=== PATIENT | female | born 1940 | race Caucasian/White ===

== ENCOUNTER → 2021-06-05 11:36 | Outpatient (CLI) | payer MEDICARE, OTHER, SELFPAY ==
[2021-06-05 20:13] LABS: Alanine Aminotransferase 22 IU/L (<35); Albumin Globulin Ratio 1.5 (1.0-2.8); Alkaline Phosphatase 50 U/L (38-126); Aspartate Aminotransferase 28 IU/L (14-36); BUN Creatinine Ratio 27.7 (6-22); Bilirubin Total 0.5 mg/dL (0.2-1.3); Blood Urea Nitrogen 28 mg/dL (7-17); Calcium 9.3 mg/dL (8.4-10.2); Carbon Dioxide 31 mmol/L (22-32); Chloride 103 mmol/L (98-107); Estimated Glomerular Filt Rate 52.7 mL/min (>60); Globulin 2.7 g/dL (1.7-4.1); Glucose 97 mg/dL (80-110); HEMOLYSIS < 15 (0-50); Potassium 4.1 mmol/L (3.4-5.1); Sodium 136 mmol/L (137-145); Total Protein 6.7 g/dL (6.3-8.2)
[2021-06-05 20:38] LABS: Thyroid Stimulating Hormone 17.7 uIU/mL (0.47-4.68)
== END ==
PROVIDERS: PCP Family Medicine; Referring Provider Family Medicine; Visit Provider Family Medicine
DX: E03.9 Hypothyroidism, unspecified (principal); R53.83 Other fatigue
CPT/HCPCS: 80053; 84443

== ENCOUNTER → 2021-09-06 13:36 | Outpatient (CLI) | payer MEDICARE, SELFPAY ==
[2021-09-06 19:08] LABS: Thyroid Stimulating Hormone 0.959 uIU/mL (0.47-4.68)
== END ==
PROVIDERS: PCP Family Medicine; Referring Provider Family Medicine; Visit Provider Family Medicine
DX: E03.9 Hypothyroidism, unspecified (principal)
CPT/HCPCS: 84443

== ENCOUNTER → 2022-04-13 12:35 | Outpatient (CLI) | payer MEDICARE, SELFPAY ==
--- NOTE | 2022-04-13 | DI.MG.S_ITS ---
UNILATERAL LEFT DIGITAL DIAGNOSTIC MAMMOGRAM 3D/2D WITH ADDITIONAL VIEWS: 04/13/2022 CLINICAL: Additional evaluation requested from prior study. Comparison is made to exam dated: 02/20/2022 mammogram - outside location. There are scattered areas of fibroglandular density in the left breast (category b / 25%-50% glandular tissue). There is an irregular equal density focal asymmetry with an indistinct margin in the left breast at 8 o'clock posterior depth. This is seen in additional views. No other significant masses or calcifications are seen in the breast. IMPRESSION: INCOMPLETE: NEEDS ADDITIONAL IMAGING EVALUATION The irregular equal density focal asymmetry in the left breast is indeterminate. An ultrasound is recommended. Based on the Tyrer Cuzick model (a risk assessment model) the patient's lifetime risk is 0.9% and her 10 year risk is 0.0%. According to the ACR, ACS, and NCCN guidelines, an annual breast MRI exam along with mammogram is recommended if the patient's lifetime risk is 20% or greater. This exam was interpreted at Station ID: [id number]. NOTE: For mammograms, a report in lay terms will be sent to the patient. Approximately 15% of breast malignancies will not be visualized mammographically. In the management of a palpable breast mass, a negative mammogram must not discourage biopsy of a clinically suspicious lesion. Electronically Signed By: John parker/regine:04/13/2022 15:41:34 ACR BI-RADS Category 0: Incomplete 3340F
--- NOTE | 2022-04-13 12:38 | DI.US.S_ITS ---
LIMITED ULTRASOUND OF LEFT BREAST AND AXILLA: 04/13/2022 CLINICAL: Patient returns today to evaluate a focal asymmetry in the left breast. Comparison is made to exams dated: 04/13/2022 mammogram - [facility] and 02/20/2022 mammogram - outside location. Color flow ultrasound of the left breast axilla was performed. Sherman scale images of the real-time examination were reviewed. There is a 0.5 cm x 0.5 cm x 0.5 cm irregular mass with an indistinct margin in the left breast at 8 o'clock posterior depth 9 cm from the nipple. This irregular mass is hyperechoic with posterior acoustic shadowing. This correlates with mammography findings. Color flow imaging demonstrates that there is vascularity present. No significant abnormalities were seen sonographically in the left axilla. IMPRESSION: SUSPICIOUS OF MALIGNANCY The 0.5 cm x 0.5 cm x 0.5 cm irregular mass in the left breast is suspicious of malignancy. An ultrasound guided biopsy is recommended. The findings and recommendations were discussed with the patient by the onsite radiologist, Dr. Golden, at the time of the exam. No significant abnormalities were seen sonographically in the left axilla. This exam was interpreted at Station ID: [id number]. Electronically Signed By: John Knapp M.D. ar/:04/13/2022 15:44:17 letter sent: Biopsy Required Ultrasound BI-RADS: 4 Suspicious for malignancy
== END ==
PROVIDERS: PCP Family Medicine; Referring Provider Family Medicine; Visit Provider Family Medicine
DX: R92.8 Other abnormal and inconclusive findings on diagnostic imaging of breast (principal); N63.24 Unspecified lump in the left breast, lower inner quadrant
CPT/HCPCS: 76642; 77065; G0279

== ENCOUNTER → 2022-05-08 | Outpatient (CLI) | payer MEDICARE, SELFPAY ==
--- NOTE | 2022-05-08 | PATH_ITS ---
[facility] Accession Number: [id number] . 01 Material submitted: . breast - LEFT BREAST MASS 8:00 9CM FN . 01 Diagnosis: A. Left Breast Mass, 8 o'clock, 9 cm from the Nipple, Biopsy: Invasive (ductal) carcinoma, with focal lobular growth pattern, grade 1 of 3 (Christi combined histologic grade, total score 5/9) with the following features: 1. Nuclear pleomorphism: Intermediate. (2/3) 2. Mitotic rate: Low. (1/3) 3. Tubular differentiation: Moderate degree. (2/3) 4. Size of invasive carcinoma: present on multiple cores, single largest dimension of 3 mm in this sample. 5. Ductal carcinoma in situ: Absent. 6. Calcifications: Absent. 7. Lymphatic invasion: Absent. 8. Prognostic markers: - Estrogen receptor: Positive (>99%, Strong). - Progesterone receptor: Positive (>85%, Moderate to Strong). - HER2: Negative for protein overexpression by immunohistochemistry (1+). [facility] 05/11/2022 1636 Local . 01 Electronically signed: Fabby Ansari MD, Pathologist NPI- [id number] . 01 Gross description: . Received one formalin-filled container, labeled with the patient's name and LT breast 8 o'clock 9 cm FN. The sample is received with a plastic filter in container, sample loose in container and consists of multiple light yellow-simpson pieces of soft tissue which range in size from less than 0.1 cm to 1.0 x 0.2 x 0.2 cm. The specimen is filtered. All fragments are totally submitted in one cassette. Collection date and time per requisition: 05/08/22 at 10:08. Total fixation time: Approximately 17 hours. ([id number]) /FRR 05/09/2022 0314 Local . 01 Microscopic: . Predictive marker immunohistochemical studies are performed on block A1 with the invasive carcinoma showing the following results: . Estrogen receptor (SP1): Positive (more than 99% tumor cells staining, staining intensity: strong). Progesterone receptor (1E2): Positive (more than 85% tumor cells staining, staining intensity: moderate to strong). Her2 (4B5): Negative for protein overexpression by immunohistochemistry (1+). . Internal controls for ER and IN are positive. Cold ischemic time is <5 minutes. The scoring criteria for breast biomarkers by immunohistochemistry is based on the ASCO/CAP guidelines (Yessi AC et al, J Clin Oncol: 2017Dec 10;36(20):3634-0978 and Bright NICK et al, Arch Pathol Lab Med: 2009;134(6):907-22). Deparaffinized sections of formalin fixed tissue (along with appropriate positive controls) are incubated with the above antibody(s). Using the automated Shelbina stainer, tissue is incubated with the designated antibody which is then localized by a non-biotin, dual polymer detection system. The external controls are reviewed for appropriate reactivity and found to be adequate. Results on the target cell population are indicated above. These tests have not been validated on decalcified tissue. This test was developed and its performance characteristics determined by [facility]. It has not been cleared or approved by the U.S. Food and Drug Administration. The FDA has determined that such clearance or approval is not necessary. This test is used for clinical purposes. It should not be regarded as investigational or for research. . 01 Pathologist provided ICD-10: C50.812 . 01 CPT . 462750, 580824, 682872, 783971 Specimen Comment: A courtesy copy of this report has been sent to [phone] Performed at: 01 [facility] Cytology [address] [place] [address], [place], [place] [id number] MD Satish Lorenzana MD Phone: [phone]
--- NOTE | 2022-05-08 | DI.MG.S_ITS ---
UNILATERAL LEFT DIGITAL DIAGNOSTIC MAMMOGRAM 3D/2D: 05/08/2022 CLINICAL: Post clip. Comparison is made to exams dated: 04/13/2022 ultrasound, 04/13/2022 mammogram - [facility], and 02/20/2022 mammogram - outside location. There are scattered areas of fibroglandular density in the left breast (category b / 25%-50% glandular tissue). There is a biopsy clip in the region of previously seen irregular equal density focal asymmetry with an indistinct margin in the left breast at 8 o'clock posterior depth. This is seen in additional views. IMPRESSION: POST PROCEDURE MAMMOGRAM FOR MARKER PLACEMENT Biopsy clip in region of previously seen abnormality. This exam was interpreted at Station ID: [id number]. NOTE: For mammograms, a report in lay terms will be sent to the patient. Approximately 15% of breast malignancies will not be visualized mammographically. In the management of a palpable breast mass, a negative mammogram must not discourage biopsy of a clinically suspicious lesion. Electronically Signed By: Christina eller/:05/08/2022 10:00:39 ACR BI-RADS Category Post-procedure mammogram for marker placement
--- NOTE | 2022-05-08 09:00 | DI.US.S_ITS ---
ULTRASOUND GUIDED BIOPSY LEFT BREAST: 05/08/2022 CLINICAL: Left breast mass. PATIENT CONSENT: Risks (minor bleeding, infection, vasovagal reaction and repeat procedure), benefits and alternatives were explained to the patient and written informed consent was obtained. Correlation is made to exams dated: 05/08/2022 mammogram, 04/13/2022 ultrasound, 04/13/2022 mammogram - [facility], and 02/20/2022 mammogram - outside [facility]. An ultrasound guided biopsy using real-time ultrasound was performed for the irregular shaped mass located in the left breast at 3 o'clock posterior depth. The skin was prepped in the usual manner. The abnormality was approached from the caudocranial aspect. A biopsy needle was placed adjacent to the abnormality under ultrasound guidance. Once the needle was documented to be in the correct location, a specimen was obtained using an automated biopsy gun. The specimen was sent to the laboratory for pathological analysis. IMPRESSION: ULTRASOUND GUIDED BIOPSY MALIGNANT Ultrasound guided biopsy of the mass in the left breast posterior depth was performed. Pathology indicates malignant invasive ductal carcinoma (ID) with lobular features. Pathology results are concordant with imaging findings. Oncologic/surgical consultation recommended. This exam was interpreted at Station ID: [id number]. Iveth Cleveland M.D. [facility],/:05/16/2022 16:25:05
== END ==
PROVIDERS: PCP Family Medicine; Referring Provider Family Medicine; Visit Provider Family Medicine
DX: Z13.820 Encounter for screening for osteoporosis (principal); C50.312 Malignant neoplasm of lower-inner quadrant of left female breast; Z78.0 Asymptomatic menopausal state; M81.0 Age-related osteoporosis without current pathological fracture; Z90.710 Acquired absence of both cervix and uterus; Z17.0 Estrogen receptor positive status [ER+]
CPT/HCPCS: 19083; 77065; 77080

== ENCOUNTER → 2022-05-29 10:58 | Outpatient (CLI) | payer MEDICARE, SELFPAY ==
[2022-05-29 19:18] LABS: Add Manual Diff / Slide Review NO; Basophils Absolute Auto 200 /uL (0-100); Eosinophils Absolute Auto 200 /uL (0-450); Eosinophils Percent Auto 3.7 % (2-4); Hematocrit 42.4 % (36-46); Hemoglobin 14.3 g/dL (12.0-16.0); Lymphocytes Absolute Auto 1300 /uL (1100-4500); Lymphocytes Percent Auto 23.9 % (25-40); Mean Corpuscular HGB Conc 33.7 % (30-36); Mean Corpuscular Hemoglobin 30.3 PG (26-34); Mean Corpuscular Volume 89.9 fL (80-100); Monocytes Absolute Auto 400 /uL (0-900); Monocytes Percent Auto 7.3 % (3-14); Neutrophils Absolute Auto 3200 /uL (1500-7000); Neutrophils Percent Auto 62.1 % (50-75); Platelet Count 241 X10^3/uL (150-400); Red Blood Cell Count 4.72 X10^6/uL (4.0-5.2); Red Cell Distribution Width 13.7 % (11.6-14.8); White Blood Cell Count 5.2 X10^3/uL (4.5-11.0)
[2022-05-29 19:26] LABS: BUN Creatinine Ratio 32.3 (6-22); Blood Urea Nitrogen 30 mg/dL (7-17); Calcium 8.8 mg/dL (8.4-10.2); Carbon Dioxide 27 mmol/L (22-32); Chloride 98 mmol/L (98-107); Cholesterol 252 mg/dL (140-199); Estimated Glomerular Filt Rate > 60 mL/min (>60); Glucose 100 mg/dL (80-110); HDL Cholesterol 72 mg/dL (40-60); HEMOLYSIS < 15 (0-50); LDL Cholesterol Calculated 158 mg/dL (<100); Potassium 4.5 mmol/L (3.4-5.1); Sodium 134 mmol/L (137-145); Triglycerides 112 mg/dL (35-150)
[2022-05-29 20:10] LABS: Vitamin B12 607 pg/mL (239-931)
== END ==
PROVIDERS: PCP Family Medicine; Visit Provider Family Medicine
DX: F33.0 Major depressive disorder, recurrent, mild (principal); E03.9 Hypothyroidism, unspecified; R92.8 Other abnormal and inconclusive findings on diagnostic imaging of breast; I10 Essential (primary) hypertension; Z13.220 Encounter for screening for lipoid disorders; F32.9 Major depressive disorder, single episode, unspecified; F41.1 Generalized anxiety disorder; M54.6 Pain in thoracic spine
CPT/HCPCS: 80048; 80061; 82607; 84443; 85025

== ENCOUNTER → 2022-07-03 11:32 | Outpatient (CLI) | payer MEDICARE, SELFPAY ==
--- NOTE | 2022-07-03 | DI.MG.S_ITS ---
SPECIMEN: 07/03/2022 CLINICAL: Left breast specimen. Correlation is made to exams dated: 05/08/2022 [facility]. The biopsy marker clip is in the center of the surgical specimen. IMPRESSION: SPECIMEN The biopsy marker clip is in the surgical specimen. This exam was interpreted at Station ID: [id number]. Alisia Su M.D. fx/:07/03/2022 20:22:52
--- NOTE | 2022-07-03 | DI.NM.S_ITS ---
PROCEDURE: NM SENTINEL NODE INJECT ONLY RADIOPHARMACEUTICAL: 1.0 mCi Millipore filtered Tc-99m sulfur colloid. INDICATIONS: Left breast cancer COMPARISON: None. PROCEDURE: The area around the nipple was prepped and draped in a sterile fashion. Tc-99m sulfur colloid was injected intra-dermally around the outer edge of the areola in the left breast. No image was obtained. IMPRESSION: Administration of radiotracer into the left breast periareolar region for intra-operative sentinel lymph node localization. Dictated by: Yumi Douglass MD, PhD on 07/03/2022 at 13:09 Approved by: Yumi Douglass MD, PhD on 07/03/2022 at 13:10
== END ==
PROVIDERS: PCP Family Medicine; Referring Provider Surgery; Visit Provider Surgery
DX: C50.912 Malignant neoplasm of unspecified site of left female breast (principal)
CPT/HCPCS: 38792; 76098; A9541

== ENCOUNTER 2022-07-03 11:38 | Day surgery (SDC) | payer MEDICARE, SELFPAY ==
[2022-06-27 08:19] VITALS: BMI 25.8
--- NOTE | 2022-07-03 | DI.US.S_ITS ---
ULTRASOUND OF LEFT BREAST: 07/03/2022 CLINICAL: Sched for pre-op wire loc. Unable to see Celero biopsy marker. Procedure moved to mammo. Comparison is made to exams dated: 05/08/2022 mammogram, 05/08/2022 ultrasound biopsy, 04/13/2022 ultrasound, 04/13/2022 mammogram - [facility], and 02/20/2022 mammogram - outside location. Real-time ultrasound of the left breast was performed on the area of interest. The biopsy marker and mass in the left breast at 8:00 are not definitively identified on the ultrasound. IMPRESSION: The biopsy marker and the mass in the left breast at 8:00 are not definitively identified on the ultrasound. Wire localization was switched to mammographic guidence. This exam was interpreted at Station ID: [id number]. Electronically Signed By: Alisia Su M.D. fx/:07/03/2022 13:55:34 Ultrasound BI-RADS: n/a
--- NOTE | 2022-07-03 | DI.MG.S_ITS ---
WIRE LOCALIZATION LEFT BREAST: 07/03/2022 CLINICAL: Left breast cancer. PROCEDURE DESCRIPTION: Wire localization was performed under mammography guidence. Correlation is made to exams dated: 07/03/2022 ultrasound and 05/08/2022 mammogram - [facility]. A wire localization was performed targeting the marker clip located in the left breast in the lower inner quadrant posterior depth. The skin was prepped in the usual manner. A wire was inserted into the targeted area. There is a localizatino wire in the medial inferior left breast adjacent to the biopsy marker. IMPRESSION: WIRE LOCALIZATION Wire localization for the biopsy marker clip in the left breast was successful. This exam was interpreted at Station ID: [id number]. Alisia Su M.D. fx/:07/03/2022 20:23:18
--- NOTE | 2022-07-03 | PATH_ITS ---
[facility] Accession Number: [id number] No. of containers..04 Tissue . 01 Material submitted: . PART A: breast - LEFT BREAST TISSUE PART B: breast - LEFT BREAST TISSUE PART C: breast - LEFT BREAST TISSUE PART D: lymph node - LEFT AXILLARY SENTINEL NODES . 01 Diagnosis: A. Left Breast, Excision: Invasive ductal carcinoma; see Cancer Case Summary. . B. Left Breast, New Inferior Margin, Excision: Fibroadipose tissue. No breast parenchyma identified. No evidence of neoplasm. . C. Left Breast, New Medial Margin, Excision: Benign breast parenchyma. Negative for atypical hyperplasia, in situ or invasive carcinoma. . D. Left Axillary [place] Lymph Nodes, Excisional Biopsy: Four lymph nodes with no evidence of carcinoma. . . CANCER CASE SUMMARY - BREAST RESECTION Specimen - Procedure: Excision. - Specimen laterality: Left. Tumor - Tumor site: 8 o'clock. - Distance from nipple: 9 cm. - Histologic type: Invasive carcinoma of no special type (ductal). Histologic grade (Hopwood Histologic Score) - Tubular differentiation: Score 2. - Nuclear pleomorphism: Score 2. - Mitotic rate: Score 1. - Overall grade: Grade 1. Tumor size: 5 mm in greatest linear extent as measured on glass slide. Tumor focality: Single focus of invasive carcinoma. Ductal carcinoma in situ: Not identified. Lobular carcinoma in situ: Not identified. Lymphovascular invasion: Not identified. Dermal lymphovascular invasion: Not identified. Microcalcifications: Not identified. Treatment effect in the breast: No known presurgical therapy. Margin status for invasive carcinoma: All margins negative for invasive carcinoma. - Distance from invasive carcinoma to closest margin: 2 mm. - Closest margin to invasive carcinoma: Superior; See Comment. Regional lymph nodes - Regional lymph node status: Regional lymph nodes present. - All regional lymph nodes negative for tumor. - Total number of lymph nodes examined: 4. - Total number sentinel lymph nodes examined: 4. PTNM Classification (AJCC 8th Edition): - PT category: pT1a - PN category: pN0 - N suffix: (sn) Special studies: - Reported on biopsy specimen ([id number], 2021). - Estrogen receptor: Positive (99%, strong). - Progesterone receptor: Positive (85%, moderate to strong). - HER2: Negative for protein overexpression by immunohistochemistry (1+). V 07/06/2022 1544 Local . 01 Comment: Within the main specimen (Part A), carcinoma is present within 2mm of the superior margin. Additonal inferior (Part B) and medial (Part C) margins submitted are negative for carcioma. The additonal medial margin may have extened superiorly to include the closest superior margin, and clinical correlation is required to make this determination. . 01 Electronically signed: . Lester Do MD, PhD, Pathologist NPI- [id number] . 01 Gross description: . A. Received: In formalin, labeled with the patient's name, , and left breast tissue, long stitch lateral, short stitch superior. Specimen: Left lumpectomy. Weight: 36 grams. Measurement: 6.2 cm from anterior to posterior, 5.4 cm medial to lateral, and 1.7 cm superior to inferior. Skin Ellipse: Present, measuring 6.7 x 1.2 cm with a green-inked cutaneous surface. Wire: Present, penetrating superiorly and exiting inferiorly. Margins: The ellipse is marked with a short suture designating superior and along suture designating lateral, per the requisition. The specimen is also inked by the surgeon using margin marker with green anterior, blue inferior, per the requisition. However, the remaining inking scheme is cut off. The container states, see attached margin marker color sheet, however, no color sheet or sticker is identified with the requisition or the container. Following the sutures, the remaining specimen is received inked as follows: Red superior, black posterior, yellow medial, orange lateral. The ink is reinforced at the bench Sliced: From anterior to posterior into twelve 3 mm slices. Lesion: One. Description: A firm, ill-defined pale simpson lesion. Size: 0.8 x 0.4 x 0.4 cm. Slices Involved: Slice 3. Biopsy Site: No clip is identified; however, an area of hemorrhage is identified within slices 4-10, possibly consistent with biopsy site changes or wire tract. Distance to margins: 0.3 cm from the red margin, 0.3 cm from the blue margin, and greater than 0.5 cm from all remaining margins. Other: The remaining cut surfaces are yellow to white fibroadipose tissue with fibrous tissue occupying less than 10% of the cut surface. No additional lesions or biopsy sites are identified. Fixation: The specimen was removed on 07/03/2022. Time not provided. Cold ischemic time cannot be calculated. Total fixation time is approximately 32 hours. Cushion Installer sections are submitted as follows: A1-A2: Rep slice 1, skin perpendicular. A3: Rep slice 2, no lesion, to include red and blue margins. A4-A6: Entire composite slice 3, to include blue, yellow, orange, and red margins with lesion in A5. A7: Rep slice 4, to include red and blue margins. No lesion. A8: Rep slice 6, to include red, blue, and orange margins. A9: Rep slice 8, to include red, blue, and yellow margins. A10: Rep slice 10, to include red, blue and orange margins, and hemorrhagic area. A11-A12: Rep slice 12, black margin perpendicular. . B. Received: In formalin, labeled with the patient's name, , and left breast tissue new inferior margin, long stitch lateral, short stitch superior. Specimen: Oriented left lumpectomy. Weight: 10 grams. Measurement: 3.1 cm anterior to posterior, 5.9 cm medial to lateral, 1.3 cm superior to inferior. Skin Ellipse: Absent. Wire: Absent. Margins: Oriented with a short suture designating superior and a long suture designating lateral, per the requisition, and is received without ink. The specimen is inked as follows: Anterior yellow posterior black, medial blue, lateral green, superior orange, inferior red. Sliced: From medial to lateral into 10 slices. Lesion: No lesion or biopsy sites grossly identified. Other: The cut surfaces are yellow to white fibroadipose tissue with fibrous tissue occupying less than 10% of the cut surface. No lesions or biopsy sites are identified. Fixation: The specimen was removed on 07/03/2022. Time not provided. Cold ischemic time cannot be calculated. Total fixation time is approximately 32 hours. Specimen is submitted entirely as follows: B1-B2: Entire slice 1, blue margin perpendicular. B3: Entire slice 2. B4: Entire slice 3. B5: Entire slice 4. B6: Entire slice 5. B7: Entire slice 6. B8: Entire slice 7. B9: Entire slice 8. B10: Entire slice 9. B11-B12: Entire slice 10, green margin perpendicular. . C. Received in formalin labeled with the patient's name, and left breast tissue new medial no stitch, and consists of an unoriented yellow lobulated soft tissue fragment weighing 2 grams and measuring 2.5 x 2.0 x 1.1 cm. One surface is flat with visible white possible fibrous tissue, and the surface is inked black. The remaining surfaces are inked blue, and the specimen is sectioned into five slices to reveal an ill-defined, pale simpson, rubbery area within slices 2-4 measuring 0.7 x 0.6 x 0.5 cm that grossly approaches both the black and the blue margins. No additional lesions or biopsy sites are identified. Fixation: The specimen was removed on 07/03/2022. Time not provided. Cold ischemic time cannot be calculated. Total fixation time is approximately 32 hours. The specimen is submitted entirely as follows: C1: Slice 1 perpendicular. C2: Entire slice 2. C3: Entire slice 3. C4: Entire slice 4. C5: Entire slice 5 perpendicular. . D. Received in formalin labeled with the patient's name, and left axillary sentinel nodes, and consists of a single fragment of yellow lobulated adipose tissue measuring 3.2 x 1.3 x 1.2 cm. Palpation reveals four lymph node candidates. The first two lymph nodes are blue tinted and measuring 0.7 to 0.9 cm in greatest dimension while the second two are simpson and range from 0.2 to 0.9 cm in greatest dimension. The lymph node candidates are submitted as follows: D1: Single bisected blue lymph node candidate. D2: Single bisected blue lymph node candidate. D3: Single simpson bisected lymph node candidate. D4: Single intact simpson lymph node candidate. The specimen was removed on 07/03/2022. Time not provided. Cold ischemic time cannot be calculated. Total fixation time is approximately 32 hours. (AG:[id number]) /MRV 07/05/2022 0918 Local . 01 Pathologist provided ICD-10: C50.912 . 01 CPT . 716121, 913858, 057717, 397674 Specimen Comment: A courtesy copy of this report has been sent to [phone] Performed at: 01 [facility] Cytology [address] [place] [address] Suite [facility], [place], [place] [id number] MD Satish Lorenzana MD Phone: [phone]
[2022-07-03 12:05] VITALS: BP 186/86; PULSE 67; RESP 20; TEMP 36.8; O2SAT 96; BMI 25.8
--- NOTE | 2022-07-03 16:33 | P.OP.PRE_ITS ---
Pre-operative Note COVID-19 COVID-19 status: Not tested Interval Note History & Physical reviewed/Exam performed by Physician: Yes Changes to H&P: Yes H&P completed within 30 days and has changed as indicated here:: After discuss ion with the radiation oncologist Kelly chose to proceed with a left breast lumpectomy under wire localization with sentinel lymph node biopsy. ASA Class (for procedural sedation): II
[2022-07-03] MEDS: CEFAZOLIN 2 GM/100 ML PREMIX 100 ML IV (17:15)
[2022-07-03] MEDS: BUPIVACAINE 0.5% W/ EPI (PF) 30 ML VIAL INJ (17:37)
--- NOTE | 2022-07-03 17:37 | SUR.OPER ---
Supine on padded OR bed, head on pillow, arms secured on padded arm boards at <90 degrees abduction, legs uncrossed, safety belt at thigh.
[2022-07-03] MEDS: METHYLENE BLUE 50 MG/10 ML VIAL INJ (17:59)
--- NOTE | 2022-07-03 18:35 | P.OP_ITS ---
Operative Date/Time/Diagnoses Date of procedure: 07/03/22 Time of procedure: 18:35 Pre-op diagnosis: Left breast cancer Post-op diagnosis: same Procedure & Clinicians Procedure: Left breast wire localization lumpectomy with oncoplastic reconstruction and sentinel lymph node biopsy Same procedure as scheduled: Yes Surgeon: Germain Mckeon Operative Notes Procedure in detail: The patient was given preoperative antibiotic. The patient was brought to the operating room, placed on the table in the supine position, general anesthesia was induced with LMA. Arms were abducted on arm boards. 5 mL of 50% methylene blue were injected near the left areolar border. The left breast and axilla wer e prepped and draped in the usual fashion. A time-out was performed. Additional massage was performed to spread the methylene blue. We made a 10 cm triangular over the lower inner quadrant of the left breast where the wire was exiting the skin. We created flaps superior and inferior to the incision and then dissected down to the pectoral fascia keeping the wire directed towards the center of the specimen. A silk suture was placed at the lateral aspect of the mass and left long. A short superior stitch was placed. The paint kit was used to orient the specimen. The specimen was sent to Radiology for specimen mammogram. We injected lidocaine into the skin and made a transverse left axillary incision of roughly 5 cm. We dissected down through the subcutaneous adipose tissue until we could more easily palpate the palpable node. The lymphoscintigraphy probe was used to identify 2 blue sentinel nodes in the axilla which were removed together. Ex vivo counts were 10 fold higher than the background in the axilla. We then irrigated both wound cavities initially with sterile saline. Marcaine was injected into the muscle layer of the lumpectomy site. A few bleeders were cauterized. Once the wound cavities were hemostatic we injected some Marcaine into the dermis and closed both incisions in layers using multiple interrupted 3-0 Vicryl dermal sutures followed by a running 4-0 Monocryl subcuticular closure. Steri-Strips were applied followed by dry gauze and a breast binder. Post-operative Condition: stable Disposition: PACU
[2022-07-03 18:37] VITALS: BP 192/83; PULSE 72; RESP 12; TEMP 36.3; O2SAT 97
[2022-07-03 18:42] VITALS: BP 166/78; PULSE 71; RESP 12; TEMP 36.3; O2SAT 96
[2022-07-03 18:48] VITALS: BP 187/88; PULSE 71; RESP 13; TEMP 36.4; O2SAT 97
[2022-07-03 19:20] VITALS: BP 183/91; PULSE 70; RESP 18; TEMP 36.4; O2SAT 97
== END 2022-07-03 19:22 | disposition home or self-care (01) ==
PROVIDERS: PCP Family Medicine; Referring Provider Surgery; Visit Provider Surgery
PROC: (CPT 19125; principal; 2022-07-03 15:45)
DX: C50.311 Malignant neoplasm of lower-inner quadrant of right female breast (principal); Z17.0 Estrogen receptor positive status [ER+]
CPT/HCPCS: 19125; 38525; 19281; 38792; 76098; 76642; A9541; C1819; J0690; J2405; J2704; J3010; Q9968

== ENCOUNTER 2022-07-04 10:48 | Emergency (ER) | payer MEDICARE, SELFPAY ==
[2022-07-04] VITALS (9 sets, daily range): BP systolic 178–202; BP diastolic 76–84; PULSE 48–93; RESP 12–20; TEMP 36.9; O2SAT 96–98; BMI 25.8
--- NOTE | 2022-07-04 11:57 | PC.NURSE ---
recent surgery yesterday. Pt has voided since surgery, but states urinary output has become less and less. Currently has 100 cc in bladder. States she feels like she has to pee, but cant. Encouraging PO intake to try and get a urine sample.
--- NOTE | 2022-07-04 12:36 | ED.FEMALEGU ---
HPI - Female Genitourinary General Chief complaint: Urogenital-Female Stated complaint: Post T-1/trouble urinating/dizzy Time Seen by Provider: 07/04/22 11:12 Source: patient Mode of arrival: Ambulatory History of Present Illness HPI Narrative: 81-year-old female, former smoker, presents to the emergency department with inability to urinate since last evening. Patient had a neoplasm removal of left breast completed last evening by Dr. Mckeon, was discharged and got back to her local hotel room by 7:00 p.m.. Patient states that she urinated once when she got home but became more difficult and has not urinated this morning. Patient reports that she drank approximately 64 oz of water since she was discharged from the recovery room. Patient states that she was NPO since midnight before her procedure. Review of chart reveals patient did receive 900 mL of NS during the procedure. Bladder scan in the ED revealed 100 mL of urine. Related Data Home Medications Medication Instructions Recorded Confirmed levothyroxine 75 mcg capsule 75 mcg PO DAILY 03/14/22 07/03/22 lorazepam 1 mg tablet 1 mg PO DAILY PRN Anxiety 03/14/22 06/27/22 sertraline 25 mg tablet 100 mg PO DAILY 03/14/22 06/27/22 sertraline 50 mg tablet 100 mg PO DAILY 07/03/22 07/03/22 Previous Rx's Medication Instructions Recorded metoprolol succinate 25 mg 37.5 mg PO DAILY #135 tabs 04/18/22 tablet,extended release 24 hr Allergies Allergy/AdvReac Type Severity Reaction Status Date / Time No Known Drug Allergies Allergy Verified 07/04/22 11:20 Review of Systems Review of Systems Narrative: Narrative: See HPI. GENERAL: Denies chills, fatigue, fever, sweats. HEENT: Denies sinus pain, ear pain, sore throat, difficulty swallowing, dizziness. RESPIRATORY: Denies dyspnea, cough, wheezing, sputum. CARDIOVASCULAR: Denies chest pain, palpitations, edema. GASTROINTESTINAL: Denies nausea, vomiting, abdominal pain, diarrhea, constipation. : Denies dysuria, frequency, incontinence, hematuria, urinary retention, flank pain. MSK: Denies weakness, joint pain, or bony pain. SKIN: Denies rash, skin lesions, or pruritis. Mild left breast tenderness secondary to neoplasm removal last evening. Patient is currently in a post-surgical binding. NEUROLOGIC: Denies weakness, dizziness, headache, numbness, confusion. PSYCHIATRIC: No concerning psychosocial issues. Patient History Medical History Anemia Anxiety Cough Difficulty swallowing Headache Hypertension (05/19/02) Hyperthyroidism (05/19/02) Palpitations Sinus drainage Surgical History History of hysterectomy (07/1974) History of surgery (1990) Hx of rhinoplasty (~1970) Hx of tonsillectomy alcohol intake frequency: a few times a week Alcohol type: beer Substance Use Type: does not use Exam Narrative Exam Narrative: Exam Narrative: GENERAL: This is a well-nourished, well-developed patient, in no acute distress. HEAD: Atraumatic. Normocephalic. EYES: Pupils equal round and reactive. Extraocular motions intact. No scleral icterus, injection or drainage. CARDIOVASCULAR: Regular rate and rhythm without murmurs, peripheral pulses intact, cap refill <2 sec. RESPIRATORY: Breath sounds equal and clear bilaterally. No wheezes, rales, or rhonchi. No cough. No increased respiratory effort. No accessory muscle use. GASTROINTESTINAL: Abdomen soft, non-tender, nondistended without guarding or rebound. No suprapubic pain. MSK: Moves all extremities. Normal range of motion, no clubbing or edema. Neurovascularly intact. NEURO: A&O x 3. SKIN: Warm, dry, no rashes or lesions noted. Initial Vital Signs Initial Vital Signs: Vital Signs Temperature 98.4 F 07/04/22 11:20 Pulse Rate 58 L 07/04/22 11:20 Respiratory Rate 20 07/04/22 11:20 Blood Pressure 202/84 H 07/04/22 11:20 Pulse Oximetry 96 07/04/22 11:20 Oxygen Delivery Method 07/04/22 11:20 Reviewed Course Orders Ordered: ED Orders 07/04/22 12:25 UA Complete [Urinalysis and Microscopic] Stat Urine Culture Stat 07/04/22 12:45 Complete Blood Count AUTO DIFF Stat Comprehensive Metabolic Panel Stat Discontinued Medications Sodium Chloride (Normal Saline 0.9%) 500 mls @ 1,000 mls/hr IV BOLUS ONE Stop: 07/04/22 13:05 Last Infusion: 07/04/22 13:44 Dose: 0 mls/hr Documented By: Admin: 07/04/22 12:55 Dose: 1,000 mls/hr Documented By: OTTO Vital Signs Vital signs: Vital Signs - 8 hr 07/04/22 11:20 07/04/22 11:56 07/04/22 12:00 Temperature 98.4 F Pulse Rate 58 L 53 L Respiratory Rate 20 19 Blood Pressure 202/84 H 178/80 H Pulse Oximetry 96 98 Oxygen Delivery Method Room Air 07/04/22 12:00 07/04/22 12:53 07/04/22 13:00 Temperature Pulse Rate 48 L 93 H 56 L Respiratory Rate 12 Blood Pressure Pulse Oximetry 98 98 Oxygen Delivery Method Room Air 07/04/22 14:25 07/04/22 14:27 07/04/22 14:27 Temperature Pulse Rate 59 L 55 L Respiratory Rate Blood Pressure 194/76 H Pulse Oximetry 96 96 Oxygen Delivery Method 07/04/22 14:30 07/04/22 14:44 07/04/22 14:44 Temperature Pulse Rate 53 L 60 Respiratory Rate Blood Pressure 181/77 H Pulse Oximetry 96 97 Oxygen Delivery Method Room Air MDM - Female Genitourinary Differential Diagnosis Differential diagnosis: Likely urinary tract infection and other (Dehydration) Lab Data 07/04/22 12:45 07/04/22 12:45 Labs: Lab Results 07/04/22 07/04/22 07/04/22 Range/Units 12:25 12:45 12:45 WBC 8.8 (4.5-11.0) X10^3/uL RBC 4.62 (4.0-5.2) X10^6/uL Hgb 14.1 (12.0-16.0) g/dL Hct 41.1 (36-46) % MCV 88.9 (80-100) fL MCH 30.5 (26-34) PG MCHC 34.3 (30-36) % RDW 13.2 (11.6-14.8) % Plt Count 219 (150-400) X10^3/uL Neut % (Auto) 79.6 H (50-75) % Lymph % (Auto) 13.0 L (25-40) % [place] % (Auto) 5.7 (3-14) % Eos % (Auto) 1.1 L (2-4) % Baso % (Auto) 0.6 (0-2) % Neut # (Auto) 7000 (7221-6665) /uL Lymph # (Auto) 1200 (2403-7896) /uL [place] # (Auto) 500 (0-900) /uL Eos # (Auto) 100 (0-450) /uL Baso # (Auto) 0 (0-100) /uL Sodium 127 L (137-145) mmol/L Potassium 4.0 (3.4-5.1) mmol/L Chloride 92 L (98-107) mmol/L Carbon Dioxide 23 (22-32) mmol/L BUN 23 H (7-17) mg/dL Creatinine 0.93 (0.52-1.04) mg/dL Estimated GFR > 60 (>60) mL/min BUN/Creatinine Ratio 24.7 H (6-22) Glucose 111 H (80-110) mg/dL Calcium 8.4 (8.4-10.2) mg/dL Total Bilirubin 0.9 (0.2-1.3) mg/dL AST 39 H (14-36) IU/L ALT 24 (<35) IU/L Alkaline Phosphatase 63 (38-126) U/L Total Protein 7.5 (6.3-8.2) g/dL Albumin 4.5 (3.5-5.0) g/dL Globulin 3.0 (1.7-4.1) g/dL Albumin/Globulin Ratio 1.5 (1.0-2.8) Urine Color Green Urine Appearance Clear Urine pH 5.5 (4.5-8.0) Ur Specific [place] 1.010 (1.000-1.035) Urine Protein Negative (Negative) Urine Glucose (UA) Negative (Negative) g/dL Urine Ketones Negative (NEGATIVE) Urine Occult Blood Negative (Negative) Urine Nitrate Negative (Negative) Urine Bilirubin Negative (NEGATIVE) Urine Urobilinogen 0.2 (0.2) E.U./dL Ur Leukocyte Esterase 1+ H (NEGATIVE) Urine RBC None seen (0-5/HPF) Urine WBC 1-5/hpf (0-5/HPF) Urine Bacteria None seen (None) Ur Culture Indicated? Specimen cultured MDM Narrative Medical decision making narrative: 81-year-old female presents to the walk-in clinic with difficulty urinating since last evening. Bladder scan revealed 100 mL. Patient was able to void 300 mL of greenish colored urine after drinking water. UA reveals 1+ leuks. Treated with IV fluids. Patient given 500 ml of NS and was able to void 500 ml of clear urine. CBC and CMP are consistent with dehydration. Discussed options with patient and son and decision was made to wait for the urine culture results before prescribing any antibiotics. Discussed plan of care and return precautions with patient and son, who verbalized understanding and were agreeable with course of action. Discharge Plan Departure Patient Disposition: Home Clinical Impression: Dehydration, Urinary tract infection Instructions: DI for Dehydration -- Adult Activity Restrictions/Additional Instructions: *You have been diagnosed with dehydration. I suspect your symptoms are from being dehydrated secondary to no fluids prior to your procedure yesterday. We have given you 500 mL of normal saline and your now able to urinate without difficulty. Your urinalysis did show 1+ leukocytes, but per mutual decision making, will wait for the urine culture before prescribing any antibiotics. For any worsening symptoms that include inability to urinate, shortness of breath, chest pain, etc. please return to the emergency department. Otherwise, follow-up with your family doctor and surgeon as needed. *What to do: *Please continue to take your regular medications as directed. [ ] New medication prescriptions sent to your pharmacy: [ ] [ ] New medication written as a paper prescription [ x] No new medications given *Please follow up with your primary care provider in 2-3 days, call for an appointment. Let them know you were seen in the Emergency Department and that we ask that you be seen in follow up. We will electronically transmit a record of today's note if your PCP is in our system *If you do not have a primary care provider please contact the [facility] Resource line at [phone]. They will ask some questions about your medical history and help get you set up with a doctor in the community. ? Return to ER if you should have any new, worsening or concerning symptoms, such as worsening pain, severe headache, confusion, chest pain, difficulty breathing, fever greater than 101 F, shaking chills, persistent vomiting to the point that you cannot drink fluids, or other new or worsening symptoms. Prescriptions: No Action sertraline 50 mg tablet 100 mg PO DAILY metoprolol succinate 25 mg tablet extended release 24 hr 37.5 mg PO DAILY Qty: 135 1RF levothyroxine 75 mcg capsule 75 mcg PO DAILY sertraline 25 mg tablet 100 mg PO DAILY lorazepam 1 mg tablet 1 mg PO DAILY PRN (Reason: Anxiety) Referrals: Derek Manrique MD [Primary Care Provider] - Stand Alone Forms: Patient Portal/API
[2022-07-04] MEDS: SODIUM CHLORIDE 0.9% 500 ML 1000 ML IV (12:55)
[2022-07-04 13:05] LABS: Add Manual Diff / Slide Review NO; Basophils Absolute Auto 0 /uL (0-100); Basophils Percent Auto 0.6 % (0-2); Eosinophils Absolute Auto 100 /uL (0-450); Eosinophils Percent Auto 1.1 % (2-4); Hematocrit 41.1 % (36-46); Hemoglobin 14.1 g/dL (12.0-16.0); Lymphocytes Absolute Auto 1200 /uL (1100-4500); Mean Corpuscular HGB Conc 34.3 % (30-36); Mean Corpuscular Hemoglobin 30.5 PG (26-34); Mean Corpuscular Volume 88.9 fL (80-100); Monocytes Absolute Auto 500 /uL (0-900); Monocytes Percent Auto 5.7 % (3-14); Neutrophils Absolute Auto 7000 /uL (1500-7000); Neutrophils Percent Auto 79.6 % (50-75); Platelet Count 219 X10^3/uL (150-400); Red Blood Cell Count 4.62 X10^6/uL (4.0-5.2); Red Cell Distribution Width 13.2 % (11.6-14.8); White Blood Cell Count 8.8 X10^3/uL (4.5-11.0)
[2022-07-04 13:10] LABS: Alanine Aminotransferase 24 IU/L (<35); Albumin 4.5 g/dL (3.5-5.0); Albumin Globulin Ratio 1.5 (1.0-2.8); Alkaline Phosphatase 63 U/L (38-126); Aspartate Aminotransferase 39 IU/L (14-36); BUN Creatinine Ratio 24.7 (6-22); Bilirubin Total 0.9 mg/dL (0.2-1.3); Blood Urea Nitrogen 23 mg/dL (7-17); Calcium 8.4 mg/dL (8.4-10.2); Carbon Dioxide 23 mmol/L (22-32); Chloride 92 mmol/L (98-107); Estimated Glomerular Filt Rate > 60 mL/min (>60); Glucose 111 mg/dL (80-110); HEMOLYSIS 84 (0-50); Sodium 127 mmol/L (137-145); Total Protein 7.5 g/dL (6.3-8.2)
[2022-07-04 14:21] LABS: Appearance Urine UA CLEAR; Bilirubin Urine UA NEGATIVE (NEGATIVE); Color Urine UA GREEN; Glucose Urine UA NEGATIVE (Negative); Ketones Urine UA NEGATIVE (NEGATIVE); Leukocyte Esterase Urine UA 1+ (NEGATIVE); Nitrite Urine UA NEGATIVE (Negative); Occult Blood Urine UA NEGATIVE (Negative); Protein Urine UA NEGATIVE (Negative); Urobilinogen Urine UA 0.2 E.U./dL (0.2)
[2022-07-04 14:22] LABS: pH Urine UA 5.5 (4.5-8.0)
[2022-07-04 14:30] LABS: Bacteria Urine None Seen; Culture Indicated Urine Specimen Cultured; RBC Urine None Seen (0-5/HPF); WBC Urine 1-5/HPF (0-5/HPF)
== END 2022-07-04 15:04 | disposition home or self-care (01) ==
PROVIDERS: Emergency Provider Registered Nurse; PCP Family Medicine
DX: E86.0 Dehydration (principal); N39.0 Urinary tract infection, site not specified
CPT/HCPCS: 36415; 51798; 80053; 81001; 85025; 87086; 96360; 99284

== ENCOUNTER → 2023-03-06 12:46 | Outpatient (CLI) | payer MEDICARE, SELFPAY ==
--- NOTE | 2023-03-06 12:49 | DI.MG.S_ITS ---
BILATERAL DIGITAL DIAGNOSTIC MAMMOGRAM 3D/2D POST LUMPECTOMY: 03/06/2023 CLINICAL: Left breast cancer; due biilateral. Comparison is made to exams dated: 07/03/2022 localization, 07/03/2022 ultrasound, 05/08/2022 mammogram, 04/13/2022 mammogram, 04/13/2022 ultrasound - [facility], and 02/20/2022 mammogram - outside location. Both breasts are heterogeneously dense, which may obscure small masses (category c / 51-75% glandular tissue). The patient is status post partial mastectomy left breast with expected post-operative findings. No significant masses, calcifications, or other findings are seen in either breast. IMPRESSION: BENIGN Expected post operative findings from left partial mastectomy. There is no mammographic evidence of malignancy. A 1 year screening mammogram is recommended; however, shorter interval surveillance can be considered at the direction of treating oncologic/surgical team. Findings and recommendations were conveyed to the patient during today's evaluation. This exam was interpreted at Station ID: [id number]. NOTE: For mammograms, a report in lay terms will be sent to the patient. Approximately 15% of breast malignancies will not be visualized mammographically. In the management of a palpable breast mass, a negative mammogram must not discourage biopsy of a clinically suspicious lesion. Electronically Signed By: Nick Pantoja M.D. aty/:03/06/2023 14:07:40 copy to: SON CHOI letter sent: Normal Exam ACR BI-RADS Category 2: Benign Finding(s) [id number]
== END ==
PROVIDERS: PCP Family Medicine; Referring Provider Internal Medicine Hematology & Oncology; Visit Provider Internal Medicine Hematology & Oncology
DX: R92.8 Other abnormal and inconclusive findings on diagnostic imaging of breast (principal); Z85.3 Personal history of malignant neoplasm of breast
CPT/HCPCS: 77066; G0279

== ENCOUNTER → 2023-04-11 13:22 | Outpatient (CLI) | payer MEDICARE, SELFPAY ==
[2023-04-11 20:03] LABS: BUN Creatinine Ratio 22.5 (6-22); Blood Urea Nitrogen 23 mg/dL (7-17); Calcium 9.3 mg/dL (8.4-10.2); Carbon Dioxide 25 mmol/L (22-32); Chloride 96 mmol/L (98-107); Estimated Glomerular Filt Rate 55 mL/min (>60); Glucose 103 mg/dL (80-110); HEMOLYSIS < 15 (0-50); Magnesium 2.1 mg/dL (1.6-2.3); Phosphorous 4.8 mg/dL (2.8-4.1); Potassium 4.9 mmol/L (3.4-5.1); Sodium 131 mmol/L (137-145)
[2023-04-11 20:08] LABS: Add Manual Diff / Slide Review NO; Basophils Absolute Auto 100 /uL (0-100); Basophils Percent Auto 1.4 % (0-2); Eosinophils Absolute Auto 300 /uL (0-450); Eosinophils Percent Auto 5.4 % (2-4); Hematocrit 40.4 % (36-46); Lymphocytes Absolute Auto 1200 /uL (1100-4500); Lymphocytes Percent Auto 23.6 % (25-40); Mean Corpuscular HGB Conc 34.7 % (30-36); Mean Corpuscular Hemoglobin 31.2 PG (26-34); Mean Corpuscular Volume 89.9 fL (80-100); Monocytes Absolute Auto 400 /uL (0-900); Neutrophils Absolute Auto 3200 /uL (1500-7000); Neutrophils Percent Auto 61.6 % (50-75); Platelet Count 229 X10^3/uL (150-400); Red Blood Cell Count 4.49 X10^6/uL (4.0-5.2); Red Cell Distribution Width 13.8 % (11.6-14.8); White Blood Cell Count 5.2 X10^3/uL (4.5-11.0)
[2023-04-11 21:01] LABS: Free T4, Direct Thyroxine 1.17 ng/dL (0.78-2.19)
== END ==
PROVIDERS: PCP Family Medicine; Visit Provider Family Medicine
DX: R39.15 Urgency of urination (principal); I10 Essential (primary) hypertension; F41.1 Generalized anxiety disorder; E03.9 Hypothyroidism, unspecified; N18.30 Chronic kidney disease, stage 3 unspecified
CPT/HCPCS: 80048; 83735; 84100; 84439; 84443; 85025

== ENCOUNTER → 2023-07-04 11:26 | Outpatient (CLI) | payer MEDICARE, SELFPAY ==
[2023-07-04 21:47] LABS: Cholesterol 248 mg/dL (140-199); HDL Cholesterol 67 mg/dL (40-60); LDL Cholesterol Calculated 156 mg/dL (<100); Triglycerides 123 mg/dL (35-150)
== END ==
PROVIDERS: PCP Family Medicine; Visit Provider Family Medicine
DX: E78.2 Mixed hyperlipidemia (principal)
CPT/HCPCS: 80061

== ENCOUNTER → 2023-11-21 14:46 | Outpatient (CLI) | payer MEDICARE, SELFPAY ==
[2023-11-21 19:45] LABS: Hematocrit 41.3 % (36-46); Hemoglobin 14.2 g/dL (12.0-16.0); Mean Corpuscular HGB Conc 34.3 % (30-36); Mean Corpuscular Hemoglobin 31.9 PG (26-34); Mean Corpuscular Volume 93.1 fL (80-100); Platelet Count 237 X10^3/uL (150-400); Red Blood Cell Count 4.44 X10^6/uL (4.0-5.2); Red Cell Distribution Width 13.5 % (11.6-14.8); White Blood Cell Count 5.6 X10^3/uL (4.5-11.0)
[2023-11-21 20:00] LABS: Alanine Aminotransferase 22 IU/L (<35); Albumin 4.6 g/dL (3.5-5.0); Albumin Globulin Ratio 1.7 (1.0-2.8); Alkaline Phosphatase 51 U/L (38-126); Aspartate Aminotransferase 29 IU/L (14-36); BUN Creatinine Ratio 24.8 (6-22); Bilirubin Total 0.6 mg/dL (0.2-1.3); Blood Urea Nitrogen 34 mg/dL (7-17); Calcium 9.6 mg/dL (8.4-10.2); Carbon Dioxide 28 mmol/L (22-32); Chloride 98 mmol/L (98-107); Cholesterol 167 mg/dL (140-199); Estimated Glomerular Filt Rate 38 mL/min (>60); Globulin 2.7 g/dL (1.7-4.1); Glucose 99 mg/dL (80-110); HDL Cholesterol 84 mg/dL (40-60); HEMOLYSIS < 15 (0-50); LDL Cholesterol Calculated 64 mg/dL (<100); Potassium 4.7 mmol/L (3.4-5.1); Sodium 131 mmol/L (137-145); Total Protein 7.3 g/dL (6.3-8.2); Triglycerides 93 mg/dL (35-150)
[2023-11-21 20:29] LABS: TSH w/ Reflex to FT4 3.46 uIU/mL (0.47-4.68)
== END ==
PROVIDERS: PCP Family Medicine; Visit Provider Physician Assistant Medical
DX: Z01.810 Encounter for preprocedural cardiovascular examination (principal); E03.9 Hypothyroidism, unspecified; E78.2 Mixed hyperlipidemia; N18.30 Chronic kidney disease, stage 3 unspecified; I12.9 Hypertensive chronic kidney disease with stage 1 through stage 4 chronic kidney disease, or unspecified chronic kidney disease
CPT/HCPCS: 80053; 80061; 83695; 84443; 85027